=== PATIENT | female | born 1995 | race Caucasian/White ===

== ENCOUNTER 2023-10-25 11:56 | Outpatient (CLI) | payer BC, SELFPAY | END 2023-10-25 11:57 | disposition home or self-care (01) | PROVIDERS: Visit Provider Registered Nurse | DX: Z34.02 Encounter for supervision of normal first pregnancy, second trimester (principal) | CPT/HCPCS: 86706; 86787 ==

== ENCOUNTER 2023-11-15 08:00 | Outpatient (CLI) | payer BC, SELFPAY ==
--- NOTE | 2023-11-15 08:15 | CRLHL7_ITS ---
For Patients: As a result of the Century Cures Act, medical imaging exams and procedure reports are released immediately into your electronic medical record. You may view this report before your referring provider. If you have questions, please contact your health care provider. INDICATION: Evaluate anatomy. COMPARISON: none TECHNIQUE: Real time duffy scale imaging of the fetus was performed as well as color Doppler analysis of the umbilical vessels. FINDINGS: Sonographic imaging demonstrates a single living intrauterine gestation. Fetus demonstrates a regular cardiac rate of 147 beats per minute. Fetus has a vertex position. The placenta lies anteriorly without evidence of placenta previa. Edge of the placenta is located 4.6 cm from the internal cervical os. Amniotic fluid volume appears normal. Single deepest vertical pocket: 4.0 cm. The cervix is closed and measures 3.3 cm in length. The composite ultrasound gestational age is calculated at 20 weeks 0 days with an estimated sonographic due date of 04/03/2024. The estimated weight is 334 grams which lies at the 45th %. The following biometric measurements were obtained: Biparietal diameter: 4.7 cm/20 weeks 2 days 58th% Head circumference: 17.5 cm/20 weeks 0 days 36th% Abdominal circumference: 15.0 cm/20 weeks 2 days 48th% Femur length: 3.2 cm/20 weeks 0 days 37th% The HC/AC ratio measures: 1.16 range (1.08-1.25) On anatomic survey, there is a normal appearance of the cerebral ventricles, cavum septi pellucidi, cisterna magna and cerebellum. The nose, lips, and facial profile appear normal. The cervical, thoracic and lumbar spine are well visualized and appear normal. There is a normal four-chamber heart view and the left and right ventricular outflow tracts appear normal. The diaphragm and stomach appear normal. The kidneys and bladder also appear normal. There is a normal three-vessel cord and cord insertion site. The four extremities appear normal. IMPRESSION: Normal OB ultrasound exam with concordance of clinical and sonographic dating. No intrinsic abnormalities noted on anatomic survey. Dictated by Lauro Calderon MD @ 11/17/2023 10:12:48 PM (Electronically Signed)
== END 2023-11-15 08:01 | disposition home or self-care (01) ==
LOC: US 08:00
PROVIDERS: Visit Provider Registered Nurse
DX: Z34.92 Encounter for supervision of normal pregnancy, unspecified, second trimester (principal); Z3A.20 20 weeks gestation of pregnancy
CPT/HCPCS: 76805

== ENCOUNTER 2024-01-15 09:08 | Outpatient (CLI) | payer BC, SELFPAY | END 2024-01-15 09:09 | disposition home or self-care (01) | LOC: LKVREF 09:09 | PROVIDERS: Visit Provider Advanced Practice Midwife | DX: Z34.93 Encounter for supervision of normal pregnancy, unspecified, third trimester (principal); Z3A.28 28 weeks gestation of pregnancy | CPT/HCPCS: 86592; 86850; J2791 ==

== ENCOUNTER 2024-01-21 08:47 | Outpatient (CLI) | payer BC, SELFPAY | END 2024-01-21 08:48 | disposition home or self-care (01) | LOC: NFLDREF 01-23 09:18 | PROVIDERS: Visit Provider Advanced Practice Midwife | DX: O99.810 Abnormal glucose complicating pregnancy (principal); Z3A.28 28 weeks gestation of pregnancy | CPT/HCPCS: 82951; 82952 ==

== ENCOUNTER 2024-03-04 08:10 | Outpatient (CLI) | payer BC, SELFPAY ==
[2024-03-05 12:59] LABS: Strep B DNA Probe Negative (Negative)
[2024-03-05 13:30] LABS: Strep B Susceptibility Needed? No
== END 2024-03-04 08:11 | disposition home or self-care (01) ==
LOC: LKVREF 08:10
PROVIDERS: Visit Provider Advanced Practice Midwife
DX: Z34.93 Encounter for supervision of normal pregnancy, unspecified, third trimester (principal); Z3A.35 35 weeks gestation of pregnancy
CPT/HCPCS: 87081; 87653

== ENCOUNTER 2024-03-12 08:05 | Outpatient (CLI) | payer BC, SELFPAY ==
[2024-03-12 08:19] VITALS: BP 108/76; PULSE 98
[2024-03-12 08:21] VITALS: RESP 16; TEMP 36.6
[2024-03-12 08:40] VITALS: PULSE 82; O2SAT 98
--- NOTE | 2024-03-12 17:05 | PC.OBNST ---
NST Note NST Note Start: 03/12/24 09:13 Freq: ONCE Status: Active Protocol: Document 03/12/24 09:05 WK (Rec: 03/12/24 17:04 WK Desktop) NST Note 1 Para (# of births) 0 EDC 04/02/24 Gestational Age In Weeks & Days 37 Weeks & 0 Days Other Complaints Here for scheduled ECV, but baby was vertex. Reactive Yes KODI Mckeon RNC Date 03/12/24 Reactive Yes RN Saurabh RNC Date 03/12/24 OB NST charge Yes Complete NST Note via Write Note Yes The provider's electronic signature indicates the NST is reactive/appropriate for gestational age. *Note to provider: If an addendum is required, open the patient's chart and click on the note under the Nurse/Allied Health tab.
== END 2024-03-12 09:12 | disposition home or self-care (01) ==
LOC: OB 09:06 → OB CLI 09:53 → OB 09:54
PROVIDERS: Visit Provider Obstetrics & Gynecology
DX: Z39.1 Encounter for care and examination of lactating mother (principal)
CPT/HCPCS: 59025; G0463

== ENCOUNTER 2024-04-08 14:32 | Outpatient (CLI) | payer BC, SELFPAY ==
[2024-04-08 14:43] VITALS: PULSE 94; O2SAT 98
[2024-04-08 14:45] VITALS: BP 109/75; PULSE 110
[2024-04-08 14:48] VITALS: PULSE 100; O2SAT 98
[2024-04-08 15:23] LABS: Amnisure Rom* Negative
--- NOTE | 2024-04-08 16:50 | PC.OBNST ---
NST Note NST Note Start: 04/08/24 14:39 Freq: ONCE Status: Active Protocol: Document 04/08/24 16:49 RENATO (Rec: 04/08/24 16:50 RENATO Desktop) NST Note 1 Para (# of births) 0 EDC 04/02/24 Gestational Age In Weeks & Days 40 Weeks & 6 Days Patient Presented with Complaint(s) of Leaking fluid Reactive Yes Appropriate for Gestational Age Yes RN iKrti Madison RN Date 04/08/24 Reactive Yes Appropriate for Gestational Age Yes KODI Mcnally RN Date 04/08/24 OB NST charge Yes Complete NST Note via Write Note Yes The provider's electronic signature indicates the NST is reactive/appropriate for gestational age. *Note to provider: If an addendum is required, open the patient's chart and click on the note under the Nurse/Allied Health tab.
--- NOTE | 2024-04-08 16:53 | PM.OBLDTN ---
OB - Triage/Final Diagnosis Visit Information Narrative: The patient is a 28 year old 1 para 0 at 40.6 weeks gestation by LMP, who presents with questionable leaking of fluid. [place] a larger gush around 0400 this morning on the toilet. She has note occasional fluid leaking throughout the day, often when she has a contraction. She felt she had more contractions earlier in the day and they have now decreased in frequency. She denies bleeding and is appreciating good movement. Amnisure was negative. Offered to check for pooling and ferning given her story but she declines. Encouraged her to return with concerns for continued or increased leaking of fluid. Requested a SVE and was 1cm/thick/ballotable. She has an appointment and BPP scheduled for tomorrow afternoon. Labor precautions reviewed. 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
== END 2024-04-08 16:45 | disposition home or self-care (01) ==
LOC: OB OUT 14:32 → OB 14:34
PROVIDERS: Visit Provider Advanced Practice Midwife
DX: O47.1 False labor at or after 37 completed weeks of gestation (principal); Z3A.40 40 weeks gestation of pregnancy
CPT/HCPCS: 59025; 84112; G0463

== ENCOUNTER 2024-04-09 01:47 | Outpatient (CLI) | payer BC, SELFPAY ==
[2024-04-09 02:02] VITALS: BP 119/75; PULSE 77; RESP 16; TEMP 36.6
[2024-04-09 02:03] VITALS: PULSE 89; O2SAT 98
[2024-04-09] MEDS: hydrOXYzine pamoate 25 MG CAPSULE 100 MG PO (02:37)
[2024-04-09] MEDS: MORPHINE 10 MG/ML inj IM (02:37)
--- NOTE | 2024-04-09 03:31 | PC.OBNST ---
NST Note NST Note Start: 04/09/24 01:51 Freq: ONCE Status: Active Protocol: Document 04/09/24 03:29 ABP (Rec: 04/09/24 03:30 ABP [id number]) NST Note 1 Para (# of births) 0 EDC 04/02/24 Gestational Age In Weeks & Days 41 Weeks & 0 Days Patient Presented with Complaint(s) of Contractions/cramping Reactive Yes KODI Heck RNC Date 04/09/24 Reactive Yes KODI Lemus RN Date 04/09/24 OB NST charge Yes Complete NST Note via Write Note Yes The provider's electronic signature indicates the NST is reactive/appropriate for gestational age. *Note to provider: If an addendum is required, open the patient's chart and click on the note under the Nurse/Allied Health tab.
== END 2024-04-09 03:20 | disposition home or self-care (01) ==
LOC: OB OUT 01:47 → OB 01:47
PROVIDERS: Visit Provider Advanced Practice Midwife
DX: O47.1 False labor at or after 37 completed weeks of gestation (principal); Z3A.41 41 weeks gestation of pregnancy
CPT/HCPCS: 59025; G0463; A9270; J2270

== ENCOUNTER 2024-04-09 11:38 | Inpatient (IN) | payer BC, SELFPAY ==
[2024-04-09] VITALS (44 sets, daily range): BP systolic 86–159; BP diastolic 51–85; PULSE 60–127; RESP 16; TEMP 36.9–37.4; O2SAT 92–100; BMI 28.5
[2024-04-09] MEDS: LACTATED RINGERS 1000 ML 1,000 ML IV ×2 (11:45→12:54)
--- NOTE | 2024-04-09 11:45 | W.PM.LDBA ---
Documented by User: Gayatri Hoyt CNM 04/09/24 14:45 Subjective History of Present Illness Narrative: Patient is being admitted to Labor and Delivery for pain management in labor. She is a 28 year old at 41w 0d weeks gestation. Her full history and physical was dictated by Kayla Tidwell on 03/09/24. Please see this for details. Patient has been at home experiencing painful contractions throughout the night, and into today. She reports most of the pain is in the low back. She did not experience any relief from the morphine and Vistaril she received while in triage last night. She has come in for relief of labor pain. She is accompanied by her , Freddie, who is at the bedside and is supportive. movement is good. No LOF or vaginal bleeding. Specific Issues/Plans G 1 P 0 : Freddie Fainted with 1hr GTT. Transfer of care from [facility] at 17.1 weeks H&P done by Kayla Tidwell CNM on 03/09/24 1. Rh negative, O- Freddie tested +Rh this Rhogam at 28 weeks: received 2. Failed 1hr GTT. -151 3hr GTT: 01/21/24-all 4 values normal. 3. Breech position at 36.4 weeks-Resolved version recommended but flipped vertex before ECV Consider US on admission to confirm vertex. Flu:declined Covid: declined Not vaccinated. Recommended. Rhogam: 01/15/24 TDAP: declined RSV:declined Labs: O-, antibody screen negative, hemoglobin 14.2, platelets 247, rubella positive, TP PA nonreactive, hepatitis-B antigen nonreactive, HIV nonreactive, chlamydia and gonorrhea both negative, urine culture with urogenital eron, hepatitis-C nonreactive, varicella immune (drawn at [facility]), hepatitis-B antibody: non-immune (drawn at [facility]) Pap smear 03/12/2022: Negative for intraepithelial lesion or malignancy, negative HPV Ultrasound: 08/27/2023: Early OB ultrasound. Live IUP. Corresponding sonographic and menstrual AGA and EDC. Normal early OB ultrasound. Anatomy US: Here at [facility] 11/15/23-Normal OB ultrasound exam with concordance of clinical and sonographic dating. No intrinsic abnormalities noted on anatomic survey. OB - Problem Based A/P Additional Plan (1) : Status: Acute (2) Pain during labor: Status: Acute Plan ASSESSMENT:?? 28 at 41 weeks 0 days gestation?? complicated by:??none Labor type: Spontaneous, Active labor?? Category 1 FHR pattern.??? Labor complicated by: ?uncontrolled back pain GBS negative (03/04/24)?- ?? PLAN:?? 1. Routine intrapartum cares as ordered. Continue with expectant management??so she can some rest. Augment prn after a nap. 2. Monitoring per policy, continuous once pain medication is administered 3. Candidate for analgesia of choice.?Patient desires epidural pain management and has received it. Cervix was checked after she was comfortable? 4. Patient encouraged to reposition to promote physiologic labor and .?? 5. GBS negative on 03/04/24. . 6. Anticipate ? Kalyn Valdez APRN, CNM, was present for visit and have reviewed and agree with documentation by the Certified Nurse Midwifery Student.? OB Exam Physical Exam Vital signs: Temp Pulse BP 98.4 F 100 110/74 04/09/24 11:16 04/09/24 11:16 04/09/24 11:16 Narrative: Vitals Reviewed Constitutional:? Alert and oriented x3 HEENT:? Normocephalic, atraumatic Lungs:? Clear to auscultation bilaterally Heart:? Regular rate and rhythm, no murmur, rub or gallop Abdomen:? Soft, nontender, and gravid. Extremities:? No edema or erythema Cervix: 7 cm/80%/0 station/vertex confirmed by sutures NST: 140 bpm/ moderate variability/[id number]/decelerations not present/contractions 2-5 min apart Documented by User: Akosua Moralez 04/09/24 13:30 Subjective History of Present Illness Time Seen by Provider: 11:49 Date Seen: 04/09/24 Narrative: Patient is being admitted to Labor and Delivery for pain management in labor. She is a 28 year old at 41w 0d weeks gestation. Her full history and physical was dictated by Kayla Tidwell on 03/09/24. Please see this for details. Patient has been at home experiencing painful contractions throughout the night, and into today. She reports most of the pain is in the low back. 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 She has come in for relief of labor pain. She is accompanied by her , Freddie, who is at the bedside and is supportive. Specific Issues/Plans G 1 P 0 : Freddie Fainted with 1hr GTT. Transfer of care from [facility] at 17.1 weeks H&P done by Kayla Tidwell CNM on 03/09/24 1. Rh negative, O- Freddie tested +Rh this Rhogam at 28 weeks: received 2. Failed 1hr GTT. -151 3hr GTT: 01/21/24-all 4 values normal. 3. Breech position at 36.4 weeks-Resolved version recommended but flipped vertex before ECV Consider US on admission to confirm vertex. Flu:declined Covid: declined Not vaccinated. Recommended. Rhogam: 01/15/24 TDAP: declined RSV:declined Labs: O-, antibody screen negative, hemoglobin 14.2, platelets 247, rubella positive, TP PA nonreactive, hepatitis-B antigen nonreactive, HIV nonreactive, chlamydia and gonorrhea both negative, urine culture with urogenital eron, hepatitis-C nonreactive, varicella immune (drawn at [facility]), hepatitis-B antibody: non-immune (drawn at [facility]) Pap smear 03/12/2022: Negative for intraepithelial lesion or malignancy, negative HPV Ultrasound: 08/27/2023: Early OB ultrasound. Live IUP. Corresponding sonographic and menstrual AGA and EDC. Normal early OB ultrasound. Anatomy US: Here at [facility] 11/15/23-Normal OB ultrasound exam with concordance of clinical and sonographic dating. No intrinsic abnormalities noted on anatomic survey. OB - Problem Based A/P Additional Plan (1) : Status: Acute (2) Pain during labor: Status: Acute Plan ASSESSMENT:?? 28 at 41 weeks 0 days gestation?? complicated by:??none Labor type: Spontaneous, Active labor?? Category 1 FHR pattern.??? Labor complicated by: ?uncontrolled back pain GBS negative (03/04/24)? ?? PLAN:?? 1. Routine intrapartum cares as ordered. Continue with expectant management?? 2. Monitoring per policy, continuous once pain medication is administered 3. Candidate for analgesia of choice.?Patient desires epidural pain management.? 4. Patient encouraged to reposition to promote physiologic labor and .?? 5. GBS negative on 03/04/24. 5. Will confirm presentation with US when patient is more comfortable 6. Anticipate ? Delivery/Labor/Induction Plan Plan: expectant management OB Exam Physical Exam Narrative: Vitals Reviewed Constitutional:? Alert and oriented x3 HEENT:? Normocephalic, atraumatic Neck:? Supple Lungs:? Clear to auscultation bilaterally Heart:? Regular rate and rhythm, no murmur, rub or gallop Abdomen:? Soft, nontender, and gravid. Extremities:? No edema or erythema Cervix: 7 cm/80%/0 station/vertex NST: 140 bpm/ moderate variability/[id number]/decelerations not present/contractions 2-5 min apart Detailed Labor and Delivery Exam Patient Gravid: Yes Contraction Frequency: 2-5 min Contraction duration (sec): 90 Tachysystole: No Contraction intensity: Moderate Fetus (Single) Monitor Accelerations: Present Monitor Decelerations: None Correction Variability: Moderate (6-25)
[2024-04-09 12:14] LABS: Basophils Percent Auto 0.1 % (0.0-3.0); Eosinophils Percent Auto 0.1 % (0.0-7.0); Hematocrit 42.5 % (33.0-51.0); Hemoglobin* 14.5 gm/dL (12.0-16.0); Immature Granulocytes Pct Auto 0.5 %; Lymphocytes Percent Auto 14.4 % (20-44); Mean Corpuscular HGB Conc 34 gm/dL (32-36); Mean Corpuscular Hemoglobin 31 pg (26-34); Mean Corpuscular Volume 92 fL (80-100); Monocytes Percent Auto 5.8 % (0.0-11.0); Neutrophils Percent Auto 79.1 % (42.0-72.0); Platelet Count* 286 K/uL (140-440); RDW Coefficient of Variation % 13.1 % (11.5-15.5); Red Blood Count 4.62 m/uL (4.00-5.20); White Blood Count* 17.17 K/uL (4.50-11.00)
[2024-04-09 12:18] LABS: Slide Review Reflex No
[2024-04-09] MEDS: PHENYLEPHRINE 100 MCG/ML SYRINGE IVP ×2 (12:32→12:56)
[2024-04-09] MEDS: LIDOCAINE 2% (PF) 5 ML VIAL EPIDURAL (12:37)
[2024-04-09] MEDS: ROPIVACAINE 0.2% 100 ml 100 ML 12 MG EPIDURAL (12:37)
--- NOTE | 2024-04-09 12:45 | PM.ANBPRC ---
PFSH PFS Surgical History History of cholecystectomy ?Z90.49 - Acquired absence of other specified parts of digestive tract (ICD-10) H/O adenoidectomy ?Z90.89 - Acquired absence of other organs (ICD-10) Social History Narrative: Works as [employer]. 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 Lives in [place]. What is your current living situation?: I presently have a place to live Problems where you live: no known problems In the past 12 months, utilities in danger of being shut off: no In past 12 months, lack of transportation kept you from medical appts, meetings, work, or getting things needed for daily living: no In the past 12 mos, have been you worried that your food would run out before you had money to buy more?: never true In the past 12 mos, the food you bought just didn't last and you didn't have money to buy more?: never true Smoking Status: Never smoker How often does anyone, including family, friends and others, physically hurt you: never How often does anyone, including family, friends and others, insult or talk down to you: never How often does anyone, including family, friends and others, threaten you with harm: never How often does anyone, including family, friends and others, scream or curse at you: never Meds Home Medications and Allergies Home Medications ?Medication ?Instructions ?Recorded ?Confirmed ?Type docosahexaenoic acid 200 mg 200 mg PO DAILY 10/25/23 04/09/24 History capsule ( DHA) Allergies Allergy/AdvReac Type Severity Reaction Status Date / Time shellfish derived Allergy Severe throat Verified 04/01/24 08:45 swells gluten Allergy Intermediate Verified 04/01/24 08:45 Sulfa (Sulfonamide Allergy Intermediate Verified 04/01/24 08:45 Antibiotics) tree nuts Allergy Severe Uncoded 04/01/24 08:45 Results Labs Labs: Laboratory Results - last 24 hr 04/09/24 11:49 WBC 17.17 H RBC 4.62 Hgb 14.5 Hct 42.5 MCV 92 MCH 31 MCHC 34 RDW Coeff of Simon 13.1 Plt Count 286 Neut % (Auto) 79.1 H Lymph % (Auto) 14.4 L Roosevelt % (Auto) 5.8 Eos % (Auto) 0.1 Baso % (Auto) 0.1 Neut # (Auto) 13.60 H Lymph # (Auto) 2.50 Roosevelt # (Auto) 1.00 H Eos # (Auto) 0.00 Baso # (Auto) 0.00 Abs Immat Gran (auto) 0.10 Imm/Tot Granulo (auto) 0.5 Vital Signs Vital Signs: Last Vital Signs Temp 98.4 F 04/09/24 11:16 Pulse 90 04/09/24 12:44 BP 105/68 04/09/24 12:44 Pulse Ox 99 04/09/24 12:36 Weight: 75.296 kg Height: 162.56 cm Anesthesia Procedures Epidural Insertion Patient Location: OB Start Time: 12:10 Stop Time: 12:40 Start Date: 04/09/24 Stop Date: 04/09/24 Reason for Block: procedure for pain Patient Position: sitting Performed By: Wilfrido aCro Preanesthetic Checklist: IV checked, risks and benefits discussed, monitors and equipment checked, pre-op evaluation, timeout performed and anesthesia consent Prep: chlorhexidine gluconate Monitoring: blood pressure monitoring, continuous pulse oximetry and heart rate Approach: midline Vertebral Space: lumbar (1-5) Epidural Technique: EDITH saline Needle Type: Tuohy needle Injection Technique: continuous catheter Needle gauge: 17 Needle Length (cm): 10 cm Needle Insertion Depth (cm): 5 Catheter Gauge: 19 Catheter Type: multi-orifice Catheter at skin depth (cm): 15 Test Dose Result: negative and lidocaine 1.5% with epinephrine 1 to 200,000
--- NOTE | 2024-04-09 14:34 | PM.OBPNL ---
Documented by User: Gayatri Hoyt CNM 04/09/24 15:34 Subjective Narrative: RN reported called to bedside. Patient on left side, heart tones returned to baseline after multiple position changes. No evidence of hypotension. There was water noted on the floor, but BBOW still with exam. Patient remains comfortable with epidural in place. remains at bedside and supportive. Adry has not been able to sleep and consents to rupturing of the forebag. Objective Exam: Objective: Constitutional: Alert and oriented x3, coping well Vital signs stable, see nurse documentation Abdomen: gravid, pat every 2-4 min. Cervix: 9cm/100%/0 station/vertex, ROP AROM @ 1427, moderate fluid, light meconium staining. NST: 140 bpm/minimal to moderate variability/Moderate to marked accelerations/decelerations noted 7 minute deceleration with marked variability for first 2 minutes, 60 BPM at susan, recovered to baseline /contractions regular every 2-4 minutes With exam, baby initially felt direct OP. Gentle pressure applied and baby easily rotated to ROP with no negative response to the maneuver. Vital Signs: Last Vital Signs Temp 98.4 F 04/09/24 11:16 Pulse 69 04/09/24 14:16 BP 109/69 04/09/24 14:16 Pulse Ox 100 04/09/24 14:30 Plan Plan: ASSESSMENT:?? 28 yo at 41 weeks 0 days gestation?? complicated by:??No complications Labor type: Spontaneous, Active labor?? Category 2 FHR pattern.??? Labor complicated by: no?complications GBS negative 03/04/24- ?? PLAN:?? 1. Routine intrapartum cares as ordered. 2. AROM with patient consent. Continue with expectant management. Will check again in a few hours or sooner if patient feels rectal pressure and prn. ?? 3. Monitoring per policy, continuous 4. Continue with epidural pain management 5. Patient encouraged to reposition and ambulate to promote physiologic labor and .?? 6. Anticipate ? Kalyn Valdez APRN, CHRISTOPH, was present for visit and have reviewed and agree with documentation by the Certified Nurse Midwifery Student.? Documented by User: Akosua Moralez 04/09/24 15:26 Subjective Time Seen by Provider: 14:30 Date Seen: 04/09/24 Narrative: RN reported called to bedside. Patient on left side, heart tones returned to baseline. Patient remains comfortable with epidural in place. Patient has been repositioning with nurses. remains at bedside and supportive. Objective Exam: Objective: Constitutional: Alert and oriented x3, coping well Vital signs stable, see nurse documentation Abdomen: gravid, pat every 2-4 min. Cervix: 9cm/100%/0 station/vertex, ROP AROM @ 1427, moderate fluid, light meconium staining. NST: 140 bpm/minimal to moderate variability/Moderate to marked accelerations/decelerations noted 7 minute deceleration with marked variability for first 2 minutes, 60 BPM at susan, recovered to baseline /contractions regular every 2-4 minutes Contractions Monitor mode: External Assessment Assessment: active labor Plan Plan: ASSESSMENT:?? 28 yo at 41 weeks 0 days gestation?? complicated by:??No complications Labor type: Spontaneous, Active labor?? Category 2 FHR pattern.??? Labor complicated by: no?complications GBS negative 03/04/24 ?? PLAN:?? 1. Routine intrapartum cares as ordered. 2. AROM with patient consent. Continue with expectant management?? 3. Monitoring per policy, continuous 4. Continue with epidural pain management 5. Patient encouraged to reposition and ambulate to promote physiologic labor and .?? 6. Anticipate ?
--- NOTE | 2024-04-09 18:12 | W.PM.OBVAGDE ---
Documented by User: Akosua Moralez 04/09/24 18:42 OB Procedure Vag Delivery Mother Details Mother Details: The patient is a 28 year-old, 1, Para 0, admitted on 04/09/24 at Days gestation. : 1 Para: 1 Weeks Gestation: 40.0 Admission Date: 04/09/24 Additional Details Amniotic Membrane Status: AROM Amniotic Membrane Rupture Date: 04/09/24 Amniotic Membrane Rupture Time: 14:27 Amniotic Membrane Fluid Description: Meconium Stained (Light meconium staining) Analgesia/Anesthesia Type: Epidural Waterbirth: No Pitcoin: No Delivery augmentation: rupture of membranes Labor Onset: 11:00 Complete: 17:15 Pushin:19 Heart: heart tones during second stage category 2 Delivery Details Delivery Date: 04/09/24 Delivery Time: 17:41 Route of delivery: Gender: Male Infant Viability: Alive; Heart Rate Present Position at Delivery: OA Delivery Details: Delivered via spontaneous vaginal delivery. Infant was placed on maternal abdomen.? Cord was clamped and cut after placental delivery.. Nose and mouth were bulb suctioned.? weight pending. 1 Minute Interval Total Score: 8 5 Minute Interval Total Score: 9 Additional Details Shoulder Dystocia: No Placenta Delivery Time: 17:47 Placental Delivery Description: Spontaneous Delivery repair: Vicryl Procedure Done: Global Laceration: Vaginal - 2nd Degree Bakri Used: No Sponge/Need Count Correct: Yes Cord Vessel Description: 3 Vessels and Nuchal Cord Event Summary Status: Provider to room for assessment of patient. Cervical check revealed head at +3 station with complete cervix. Instructions on pushing provided, began second stage at 1719. heart tone decelerations present with pushing efforts. Noted small gush of blood prior to delivery of head. Fetus descended in the OA position, restituted ROT. Tight nuchal cord which was summersaulted through. Infant body followed across perineum with placed onto maternal abdomen. Cord blood collected and sent to lab.Mother and infant were stable after delivery. Disposition: floor Documented by User: Gayatri Hoyt CNM 04/09/24 18:53 OB Procedure Vag Delivery Mother Details Weeks Gestation: 41.0 Additional Details Intrapartal Events: None Delivery Details Delivery Details: Patient was admitted for active labor and pain management and progressed normally. AROM noted at 1427 with light mec fluid. Patient was complete at 1715 and pushing at 1719. of a viable male at 1741 in semifowlers. Vertex delivered OA. Nuchal cord x 1 unable to slip. Baby somersaulted through without complication. Shoulder and body delivered easily and without incident. Infant passed to mothers abdomen with a vigorous cry. Cord was clamped and cut at > 5 minutes. APGARS were 8 at one minute and 9 at five minutes respectively. Intact placenta with a 3 vessel cord delivered spontaneously at 1747. Fundus firm. 2nd degree vaginal midline lac repaired in usual fashion. Bilateral labial lacerations hemostatic and not repaired. EBL 300 cc. Mother and baby stable; mother plans to breastfeed. Infant weight pending.?A couple of elevated BP immediately PP that were likely positional. They were not sustained and other BPs have been low. No diagnosis for a HTN disorder made. Additional Details Blood Loss: 300 Laceration: Vaginal - 2nd Degree (Bilateral labial hemostatic and not repaired) Episiotomy Description: None Blood Loss Measurement Type: EBL
[2024-04-09] MEDS: IBUPROFEN 600 MG TABLET PO (20:49)
[2024-04-10 01:15] VITALS: BP 109/70; PULSE 82; RESP 16; TEMP 36.9; O2SAT 97
[2024-04-10 04:00] VITALS: BP 111/74; PULSE 87; RESP 16; TEMP 36.9; O2SAT 97
[2024-04-10] MEDS: IBUPROFEN 600 MG TABLET PO ×4 (05:06→23:56)
[2024-04-10 07:45] VITALS: BP 109/75; PULSE 75; RESP 16; TEMP 36.8; O2SAT 96
--- NOTE | 2024-04-10 08:04 | PM.OBPNVD1 ---
OB - PN:Subj Subjective Date Seen: 04/10/24 Narrative: Adry is a 28 y.o. who was admitted to [facility] for labor.? She had an uncomplicated NVD.? ?? The patient feels well.? The pain is well controlled with current medications.? She has no new complaints.? She is breast feeding and reports things are going well.? the patient has done well.? Vitals have been stable.? She has remained afebrile.? Has a good appetite, is tolerating a general diet.? She is voiding without difficulty.? She is passing gas and has not had a bowel movement.? She is ambulating and denies any dizziness.? Has Small amount of rubra lochia.? OB - PN: Obj Exam Physical Exam: Vital signs: Temp Pulse Resp BP Pulse Ox O2 Del Method 98.4 F 87 16 111/74 97 Room Air 04/10/24 04:00 04/10/24 04:00 04/10/24 04:00 04/10/24 04:00 04/10/24 04:00 04/10/24 04:00 Narrative: GENERAL APPEARANCE:? normal affect, alert, no distress? MOOD:? appropriate? HEENT: normocephalic, neck supple, full ROM? CHEST:? Symmetrical chest wall movement.? Normal respiratory effort.? Clear to auscultation ? HEART:? regular rate and rhythm? ABDOMEN:? soft, non-tender. Uterine fundus is firm, at Umbilicus, Midline and is appropriate for the stage of recovery.? Bowel sounds present.? PERINEUM:? mild edema of the perineum, there is a 2nd degree laceration that is healing well.? EXTREMITIES:? normal and no edema? OB - PN: Obj Data Labs Labs: Laboratory Results - last 24 hr 04/09/24 04/10/24 11:49 02:15 WBC 17.17 H RBC 4.62 Hgb 14.5 Hct 42.5 MCV 92 MCH 31 MCHC 34 RDW Coeff of Simon 13.1 Plt Count 286 Neut % (Auto) 79.1 H Lymph % (Auto) 14.4 L [place] % (Auto) 5.8 Eos % (Auto) 0.1 Baso % (Auto) 0.1 Neut # (Auto) 13.60 H Lymph # (Auto) 2.50 [place] # (Auto) 1.00 H Eos # (Auto) 0.00 Baso # (Auto) 0.00 Abs Immat Gran (auto) 0.10 Imm/Tot Granulo (auto) 0.5 Blood Type O Negative Antibody Screen POSITIVE Screen Negative OB - PN: A/P Delivery Assessment and Plan (1) care and examination of lactating mother: Status: Acute (2) Rh negative, maternal: Status: Acute Plan day: 1 Plan: routine care Comments: G 1 P 1 status post uncomplicated NVD??? 1.? Continue route PP cares? 2.? .? May see if desired? 3.? Anticipate discharge home tomorrow?
--- NOTE | 2024-04-10 08:53 | PM.ANPOST ---
Post Anesthesia Note Post Anesthesia Note Patient seen: Inpatient Respiratory Status: adequate Cardiovascular Status: adequate Mental Status: baseline Pain: adequate Temp: baseline Anesthetic awareness: N/A Complications: none Follow care: none
[2024-04-10] MEDS: DOCUSATE SODIUM 100 MG CAPSULE PO (09:09)
[2024-04-10 13:00] VITALS: BP 97/59; PULSE 74; RESP 16; TEMP 37; O2SAT 96
[2024-04-10 16:35] VITALS: BP 107/75; PULSE 97; RESP 16; TEMP 36.9; O2SAT 97
[2024-04-10 20:00] VITALS: BP 108/75; PULSE 60; RESP 16; TEMP 36.9; O2SAT 97
[2024-04-11 00:33] LABS: Rapid Plasma Reagin (RPR) Non Reactive (Non Reactive)
[2024-04-11 03:36] VITALS: BP 119/81; PULSE 74; RESP 16; TEMP 36.6; O2SAT 97
[2024-04-11 08:29] VITALS: BP 116/76; PULSE 87; RESP 16; TEMP 36.8; O2SAT 99
--- NOTE | 2024-04-11 08:32 | PM.OBDSVD1 ---
DS: Providers Provider Date Seen: 04/11/24 Date of admission: 04/09/24 11:38 Primary care physician: Not a Local Provider Admitting Clinician: Gayatri Hoyt CNM Attending Physician on discharge: Davina Angeles APRN, CNM DS: Diagnosis Discharge Diagnosis (1) care and examination of lactating mother: Status: Acute Exam Narrative: Exam Narrative: GENERAL APPEARANCE:? normal affect, alert, no distress MOOD:? appropriate CHEST:? clear to auscultation HEART:? regular rate and rhythm ABDOMEN:? soft, non-tender the uterine fundus is at Umbilicus, Midline and is appropriate for the stage of recovery. PERINEUM:? mild edema of the perineum, there is a vaginal Laceration,?2nd degree that is healing well. EXTREMITIES:? normal and no edema Const: Vital Signs, click to edit/add: Vital Signs - 24 hr 04/10/24 13:00 04/10/24 16:35 04/10/24 20:00 Temperature 98.6 F 98.5 F 98.4 F Pulse Rate [Pulse Oximeter] 74 97 60 Respiratory Rate 16 16 16 Blood Pressure [Le ft Arm] 97/59 L 107/75 108/75 Pulse Oximetry 96 97 97 Oxygen Delivery Me thod Room Air Room Air Room Air 04/11/24 03:36 04/11/24 08:29 Temperature 98 F 98.2 F Pulse Rate [Pulse Oximeter] 74 87 Respiratory Rate 16 16 Blood Pressure [Le ft Arm] 119/81 116/76 Pulse Oximetry 97 99 Oxygen Delivery Me thod Room Air Room Air Documenting provider has reviewed patient's vital signs: yes OB - DS: Summary Hospital Course Hospital Course: Adry is a 28 y.o. G 1 P 1 who was admitted to [facility] for spontaneous onset of labor. ?She had a NVD that was uncomplicated. The patient feels well. ?The pain is well controlled with current medications. ?She has no new complaints. ?She is breast feeding and reports things are going well. the patient has done well.? Vitals have been stable.? She has remained afebrile.? Has a good appetite, is tolerating a general diet. ?She is voiding without difficulty.? She is passing gas and has not had a bowel movement.? She is ambulating and denies any dizziness.? Has small amount of rubra lochia. She is planning condoms for prevention. Problems: denies Discharge home with baby.? Follow up in 2 weeks and 6 weeks.? , may see if needed? Hgb 14.5 For pain control of perineum, breast and pelvic pain, take 600 mg Ibuprofen every 6 hours as needed by mouth or 1000 mg acetaminophen (Tylenol) every 6 hours by mouth as needed. You can alternate these so you are taking something every 3 hours as needed. A heating pad can also be used for your abdomen or breasts. You may also take docusate sodium up to twice daily to soften your stools and help to prevent constipation. You may wean off of it when your stools return to normal.? Peripartum Data Infant delivery method: Vaginal Laceration description: Vaginal - 2nd Degree complications: none Infant Gender: Male Discharge Plan: Home Status at Discharge Functional status at discharge: independent ambulation Overall status at discharge: patient is not back to baseline Time Spent with Patient Time attestation: Total time spent providing and/or coordinating discharge services: Time spent: Less than 30 minutes Discharge Plan Discharge Disposition: Home, Self-Care Date of Admission: 04/09/24 11:38 Attending Provider on Discharge: Davina Angeles Primary Care Provider: Provider,Not a Local Condition: Stable Anticipated Discharge Date/Time: 04/11/24 12:00 Discharge Medications: New acetaminophen 500 mg Tablet 1,000 mg PO Q6H PRNQty: 0 0RF docusate sodium 100 mg Capsule 100 mg PO DAILY Qty: 90 0RF ibuprofen 600 mg Tablet 600 mg PO Q6H PRNQty: 60 0RF Continued DHA 200 mg capsule 200 mg PO DAILY Discharge Orders: Discharge Order (Routine); Ordered 04/11/24 Ordered By: Davina Angeles Patient Education: OB Over the Counter Medication Information, OB Vaginal/Breast Feeding Additional Instructions: Discharge instructions were reviewed with the patient including signs and symptoms of infection and home going medications Nothing vaginally for 6 weeks: no tampons or intercourse Off Work or School for 6 weeks 2-week visit: discuss infant feeding concerns, review control options and screen for anxiety/depression. 6-week visit for an annual exam. consultation services are available to all mothers and babies for the first year after delivery.? To make an appointment, please call [phone]. Activity Level: Activity as Tolerated Discharge Diet: Regular Follow Up Appointments: [facility] [Provider Group] Forms: [employer] Info Instructions
[2024-04-11] MEDS: DOCUSATE SODIUM 100 MG CAPSULE PO (09:54)
== END 2024-04-11 12:05 | disposition home or self-care (01) | DRG 560 ==
LOC: OB OUT 11:43 → OB 11:43
PROVIDERS: Admitting Provider Midwife; Visit Provider Midwife
DX: O48.0 Post-term pregnancy (principal); O77.0 Labor and delivery complicated by meconium in amniotic fluid; O70.1 Second degree perineal laceration during delivery; O26.893 Other specified pregnancy related conditions, third trimester; Z67.41 Type O blood, Rh negative; Z37.0 Single live birth; Z3A.41 41 weeks gestation of pregnancy; Z3A.40 40 weeks gestation of pregnancy
CPT/HCPCS: 01967; 36415; 59025; 84112; 85025; 85461; 86592; 86850; 86870; 86880; 86900; 86901; G0463; A9270; J2270; J2791; J2795; J7120

== ENCOUNTER 2024-05-26 11:45 | Outpatient (CLI) | payer BC, SELFPAY | END 2024-05-26 11:46 | disposition home or self-care (01) | LOC: NFLDREF 11:46 | PROVIDERS: Visit Provider Registered Nurse | DX: R30.0 Dysuria (principal) | CPT/HCPCS: 87086 ==